=== PATIENT | female | born 1950 | race African-American/Black ===

== ENCOUNTER 2021-01-09 19:52 | Inpatient (IN) | payer OTHER ==
[~2021-01-09] VITALS: Ht 157.5 cm; Wt 104.2 kg
[2021-01-09 20:03] VITALS: BP 139/67
[2021-01-09] MEDS ORDERED: TOPROL XL100 MG PO (20:08)
[2021-01-09] MEDS ORDERED: NORVASC10 MG PO (20:08)
[2021-01-09] MEDS ORDERED: VALSARTAN-HCTZ1 EAC3 PO (20:09)
[2021-01-09] MEDS ORDERED: LIPITOR40 MG PO (20:09)
[2021-01-09] MEDS ORDERED: ASA81BEC PO (20:10)
[2021-01-09] MEDS ORDERED: OMEPRAZOLE 20 M20 M1 PO (20:10)
[2021-01-09] MEDS ORDERED: VITAMIN D325 MC3 PO (20:10)
[2021-01-09 21:24] LABS: ABSOLUTE NEUTROPHILS 6.5 thou/uL (1.4-8.2); BASOPHILS 0.4 % (0.0-2.0); EOSINOPHILS 1.6 % (0.0-3.0); HEMOGLOBIN 13.2 gm/dL (12.0-15.0); LYMPHOCYTES 19.6 % (24.0-44.0); MCH 28.5 pg (26.0-34.0); MCHC 34.8 g/dL (28.0-37.0); MCV 81.9 fL (80.0-100.0); MONOCYTES 9.6 % (1.0-8.0); PLATELET COUNT 173 thou/uL (150-400); POLYS 68.8 % (36.0-66.0); RBC 4.64 mil/uL (4.20-5.00); RDW 15.3 % (10.5-14.5); WBC 9.4 thou/uL (4.0-11.0)
[2021-01-09 21:26] LABS: ANION GAP 8 mmol/L (7-16); BUN 13 mg/dL (7-18); CALCIUM 8.9 mg/dL (8.5-10.1); CHLORIDE 103 mmol/L (98-107); CO2 28 mmol/L (21-32); CREATININE 1.2 mg/dL (0.6-1.0); GLUCOSE 122 mg/dL (74-106); POTASSIUM 3.1 mmol/L (3.5-5.1); SODIUM 139 mmol/L (136-145)
[2021-01-09 21:36] LABS: ALBUMIN 3.1 g/dL (3.4-5.0); SGOT 20 U/L (15-37); SGPT 37 U/L (14-59); TOTAL BILIRUBIN 0.8 mg/dL (0.2-1.0); TOTAL PROTEIN 6.8 g/dL (6.4-8.2); TROPONIN-I <0.06 ng/mL (<0.06)
[2021-01-10] MEDS ORDERED: NORVASC10 MG PO ×2 (00:10)
[2021-01-10 05:12] LABS: ABSOLUTE NEUTROPHILS 4.5 thou/uL (1.4-8.2); BASOPHILS 0.6 % (0.0-2.0); EOSINOPHILS 2.1 % (0.0-3.0); HEMATOCRIT 36.3 % (37.0-47.0); LYMPHOCYTES 27.2 % (24.0-44.0); MCH 27.6 pg (26.0-34.0); MCV 83.5 fL (80.0-100.0); MONOCYTES 10.7 % (1.0-8.0); PLATELET COUNT 152 thou/uL (150-400); POLYS 59.4 % (36.0-66.0); RBC 4.35 mil/uL (4.20-5.00); RDW 15.4 % (10.5-14.5); WBC 7.6 thou/uL (4.0-11.0)
[2021-01-10 05:38] LABS: ANION GAP 11 mmol/L (7-16); BUN 13 mg/dL (7-18); CALCIUM 8.6 mg/dL (8.5-10.1); CHLORIDE 106 mmol/L (98-107); CO2 25 mmol/L (21-32); CREATININE 1.1 mg/dL (0.6-1.0); GLUCOSE 100 mg/dL (74-106); MAGNESIUM 1.8 mg/dL (1.8-2.4); POTASSIUM 3.5 mmol/L (3.5-5.1); SODIUM 142 mmol/L (136-145)
[2021-01-10 08:30] LABS: TROPONIN-I <0.06 ng/mL (<0.06)
[2021-01-10 08:38] LABS: CHOLESTEROL 143 mg/dL (<200); HDL CHOLESTEROL 54 mg/dL (>40); LDL CHOLESTEROL 72 mg/dL (<100); TC:HDL 2.6 Ratio (Not establshd); TRIGLYCERIDE 85 mg/dL (<150); VLDL 17 mg/dL (<40)
--- NOTE | 2021-01-10 09:05 | NUR ---
TOMMY FROM [facility] CALLING ASKING IF DISCHARGE ORDERS CAN BE CLARIFIED WITH PROVIDER. REPORTED D/T BMI HER STRESS TEST WILL BE A "TWO DAY STUDY". REQUESTING CLAIRIFICATION FROM DR. LENNON. PAGED DR. LENNON AND VERIFIED THAT PATIENT NEEDS HER TESTING, REPORTED D/C ORDER IS NOT ACTIVE AND TO PROCEEDE WITH TESTING. NOTIFIED TOMMY OF PROVIDER STATEMENT. TOMMY REPORTED SHE WOULD COME GET PATIENT FOR STRESS TEST "AROUND NOON". TOMMY EX) [id number]
--- NOTE | 2021-01-10 09:39 | EKG ---
[address] [place] [address] ELECTROCARDIOGRAM REPORT Name: DANIELA CHU Room #: 170-8 ADM IN M.R.#: [id number] Admission: 01/09/21 Attend Phys: Brayden Tomlinson MD Discharge: Date of : 50 Report #: [id number] [facility] ED Test Date: 2021-01-09 Test Time: 20:14:24 Pat Name: DANIELA CHU Department: Room: 170 Gender: F Provider Relations Coordinator: NICKI : 1950 Requested By: Nathalie Royal Order Number: [id number] MD: Larry Granados Measurements Intervals [place] Rate: 82 P: 50 AL: 166 QRS: 1 QRSD: 94 T: 2 QT: 364 QTc: 425 Interpretive Statements Sinus rhythm Poor R wave progression No previous ECG available for comparison Electronically Signed On 01-10-2021 9:39:20 CDT by Larry Granados [email or web address] <ELECTRONICALLY SIGNED> By: Larry Granados MD, [facility] 01/10/21 0939 13 13 Larry Granados MD, FACC /EPI
--- NOTE | 2021-01-10 09:40 | 2DMMODE ---
[facility] [place] [address] 2 D/M-MODE ECHOCARDIOGRAM Name: DANIELA CHU Room #: 170-8 ADM IN Darryl.Miranda.#: [id number] Admission: 01/09/21 Attend Phys: Brayden Tomlinson MD Discharge: Date of : 50 Report #: [id number] THIS REPORT FOR: cc: Randy Sanz MD, Steven A. MD Lammoglia, Francisco J. MD ~ APPROVED REPORT Study performed: 01/10/2021 08:48:57 EXAM: Comprehensive 2D, Doppler, and color-flow Echocardiogram Patient Location: ER Status: routine BSA: 2.07 HR: 83 bpm BP: 130/60 mmHg Rhythm: NSR Other Information Study Quality: Good/flat on back Indications Chest Pain Hx: HTN, obesity. 2D Dimensions RVDd: 33.05 mm IVSd: 10.99 (7-11mm) LVOT Diam: 17.15 (18-24mm) LVDd: 37.41 mm PWd: 9.80 (7-11mm) LVDs: 26.31 (25-40mm) Left Atrium: 29.51 (27-40mm) Aortic Root: 29.20 mm Volumes Left Atrial Volume (Systole) Single Plane 4CH: 57.24 mL Single Plane 2CH: 58.93 mL LA ESV Index: 30.00 mL/m2 Aortic Valve AoV Peak Matthias.: 1.96 m/s AO Peak Gr.: 15.42 mmHg LVOT Max P.04 mmHg LVOT Max V: 1.42 m/s [facility] [address] [place] [address] 2 D/M-MODE ECHOCARDIOGRAM Name: DANIELA CHU Room #: 170-8 [facility] IN Cal.#: [id number] Admission: 01/09/21 Attend Phys: Brayden Tomlinson MD Discharge: Date of : 50 Report #: [id number] DINA Vmax: 1.67 cm2 Mitral Valve E/A Ratio: 0.8 MV Decel. Time: 173.35 ms MV E Max Matthias.: 0.75 m/s MV A Matthias.: 0.99 m/s MV PHT: 50.27 ms IVRT: 58.82 ms Pulmonary Valve PV Peak Matthias.: 1.22 m/s PV Peak Gr.: 5.97 mmHg Tricuspid Valve TR Peak Matthias.: 2.44 m/s RAP Estimate: 5.00 mmHg TR Peak Gr.: 24.00 mmHg PA Pressure: 29.00 mmHg Left Ventricle The left ventricle is normal size. There is normal LV segmental wall motion. There is normal left ventricular wall thickness. Left ventricular systolic function is hyperdynamic. LVEF is 65-70%. Mild diastolic dysfunction is present (impaired relaxation pattern). Right Ventricle The right ventricle is normal size. The right ventricular systolic function is normal. Atria The left atrium size is normal. The right atrium size is normal. Aortic Valve The aortic valve is normal in structure. No aortic regurgitation is present. There is no aortic valvular stenosis. Mitral Valve The mitral valve is normal in structure. There is no mitral valve regurgitation noted. No evidence of mitral valve stenosis. Tricuspid Valve The tricuspid valve is normal in structure. Trace tricuspid regurgitation. Estimated PAP is 30mmHg. Pulmonic Valve [facility] [address] [address] [place] [address] 2 D/M-MODE ECHOCARDIOGRAM Name: DANIELA CHU Room #: 170-8 ADM IN M.R.#: [id number] Admission: 01/09/21 Attend Phys: Brayden Tomlinson MD Discharge: Date of : 50 Report #: [id number] Pulmonic valve is not well visualized. Trace pulmonic regurgitation. Great Vessels The aortic root is normal in size. Ascending aorta is not well visualized. IVC is normal in size and collapses >50% with inspiration. Pericardium There is no pericardial effusion. <Conclusion> The left ventricle is normal size. LVEF is 65-70%. The left atrium size is normal. The aortic valve is normal in structure. The mitral valve is normal in structure. The tricuspid valve is normal in structure. Trace tricuspid regurgitation. Estimated PAP is 30mmHg. Pulmonic valve is not well visualized. Trace pulmonic regurgitation. The aortic root is normal in size. There is no pericardial effusion. <ELECTRONICALLY SIGNED> By: Maxi Carlos MD 01/10/21939 9 9 Maxi Carlos MD /INF
--- NOTE | 2021-01-10 11:47 | NUR ---
SPOKE TO TOMMY AND VERIFIED TO PLEASE HOLD METOPROLOL FOR STRESS TEST COMING SHORTLY.
[2021-01-10 14:49] VITALS: BP 133/65
[2021-01-10 15:05] VITALS: BP 123/63
--- NOTE | 2021-01-10 15:05 | NUR ---
PT ORIENTED TO ROOM AND UNIT. BED LOW AND LOCKED, SIDE RAILS UPX3, CALL LIGHT IN REACH, TELE APPLIED, FALL RISK IN PLACE. WILL CONTINUE TO ASSESS.
[2021-01-10 15:15] VITALS: BP 130/51
[2021-01-11 05:08] VITALS: BP 143/60
[2021-01-11 07:11] VITALS: BP 132/57
--- NOTE | 2021-01-11 07:49 | NUR ---
PATIENTS CARES WERE ASSUMED AT SHIFT CHANGE. PATIENT WAS ASSESSED AND MEDS WERE PASSED. PATIENT IS INDEPENDENT AND UP WITH ONE. NPO SINCE MIDNIGHT DUE TO A STRESS TEST #2 TODAY. YESTERDAYS STRESS TEST WAS NEG.ROUNDS WERE DONE, BED IS IN A LOW POSITION. THE BED ALARM IS ON
[2021-01-11 11:11] VITALS: BP 129/71
--- NOTE | 2021-01-11 12:11 | NUR ---
PT IS AXOX4, PLEASANT; PT TO HAVE SECOND STRESS TEST COMPLETED THIS AM. CARDIOLOGY CONSULTED, DR LENNON CONSULTED; PENDING RESULTS, PT TO DC THIS AFTERNOON. PT IS UP X1 STDBY TO TOILET; FALL PRECAUTIONS IN PLACE. NO CONCERNS AT THIS TIME.
--- NOTE | 2021-01-11 14:23 | NUR ---
Nutrition: Pt admit with chest pain, undergoing 2 part stress test. PMH: HTN Received education consult. BMI 42, extreme class 3 obesity. Pt denied need for education on heart healthy diet-was familiar and has been trying to follow at home. Gradual weight loss also recommended-pt understands. Willing to accept education materials but denied need for RD to review.
[2021-01-11 20:48] VITALS: BP 116/57
[2021-01-12] VITALS (10 sets, daily range): BP systolic 123–138; BP diastolic 52–73
--- NOTE | 2021-01-12 06:48 | NUR ---
PATIENTS CARES WERE ASSUMED AT SHIFT CHANGE. PATIENT WAS ASSESED AND MEDS WERE PASSED. CONSENT WAS SIGNED. QUESTIONS ANSWERED AND ALSO INCURAGED PATIENT TO TALK TO THE DOCTOR. PATIENT WAS NPO AFTER MIDNIGHT. PATIENT DID SHOWER AT 0500. IV IN THE LEFT HAND BLEWS.WILL ASKE DAY NURSE FOR IV TEAM TO RESTART WITH ULTRASOUND. ROUNDS WERE DONE. THE BED IS IN A LOW AND LOCKED POSITION
--- NOTE | 2021-01-12 14:01 | NUR ---
PT IS AXOX4, PLEASANT. VSS, AFEBRILE, SR ON MONITOR. PT HAD CARDIAC CATH IN AM; PT ON BEDREST FOR 2 HOURS POST PROCEDURE. R GROIN SITE, NO MYNX, SITE IS C/D/I, NO BLEEDING OR HEMATOMA. PT DI DISCHARGE HOME WITH FAMILY. DISCHARGE EDUCATION COMPLETED ON MEDS AND FOLLOW UP APPT. PT COMMUNICATED UNDERSTANDING OF DISCHARGE. NO CONCERNS AT THIS TIME.
--- NOTE | 2021-01-23 01:01 | CATHLAB ---
[facility] [place] [address] INVASIVE PROCEDURE REPORT Name: DANIELA CHU Room #: 210-P [facility] IN M.R.#: [id number] Admission: 01/09/21 Attend Phys: Brayden Tomlinson MD Discharge: 01/12/21 Date of : 50 Report #: [id number] THIS REPORT FOR: cc: Randy Sanz MD, Steven A. MD Lammoglia, Francisco J. MD ~ APPROVED REPORT Study performed: 01/12/2021 08:18:54 Patient Details Patient Status: In-Patient Room #: The patient is a 70 year-old female Event Personnel Maxi Carlos [facility] Care Transitions Coordinator, Nara Gu RTR Monitor, Briseida Peoples RN RN, Logan Salinas RTR Scrub Procedures Performed Art Access - R femoral artery* Left Heart Cath w/or w/o Coronaries [id number] [facility] Arch Aortography 37735 Initial Mod Sed Same Phys/QHP Gr5y 108634 20701 Mod Sed Same Phys/QHP Ea 999685 Hemostasis with Manual pressure, supervision of conscious sedation. Procedure Narrative The Right Groin^ was infiltrated with 1% Lidocaine subcutaneous anesthesia. A PINNACLE 4FR Sheath #[id number] sheath was inserted into the RFA^. Coronary angiography was performed using coronary diagnostic catheters. The right coronary system was accessed and visualized with a 3DRC catheter. The left coronary system was accessed and visualized with a JL4 catheter. The left ventricle was accessed and visualized with a ANGLED PIGTAIL catheter. Hemostasis was obtained with manual pressure following sheath removal without any complications. The patient tolerated the procedure well and there were no complications associated with the procedure. There was no hematoma. Intraoperative Conscious Sedation Sedation start time: 8:56 Case end Time: 9:35 Versed 2 mg Fluoro Time: 7.30 minutes Dose: DAP 84094.30 cGycm2 1926 mGy [address] [place] [address] [place] [address] INVASIVE PROCEDURE REPORT Name: VLADDANIELA Room #: 210-P [facility] IN .R.#: [id number] Admission: 01/09/21 Attend Phys: Brayden Tomlinson MD Discharge: 01/12/21 Date of : 50 Report #: [id number] Contrast Type and Amount: Omnipaque 115 ml Diagnostic Cath Left Main Large caliber vessel of normal origin bifurcates into left anterior descending and left circumflex arteries. No significant lesions present LAD Moderate caliber type III vessel courses in the anterior interventricular sulcus giving rise to a small first diagonal then proceeds tapering as it goes to the apex. The secondiagonal arises in distal third of lad then a 180 degree bend is present. It finallyterminates as a small bifurcating vessel Diagonal 1 small caliber vessel without lesions Diagonal 2 small caliber vessel without significant lesions Circumflex moderate caliber nondominant vessel with an early rising first marginal then terminates as a small caliber posterior wall branch OM1 moderate caliber with a proximal trifurcation. all branches are free of significant high grade lesions Right Coronary Moderate caliber dominant vessel with a superior shepards crook origin proceeds without significant obstructive lesions R PDA small caliber vessel without significant lesions Left Ventriculography Left Ventriculography was not performed. Hemodynamics The aortic pressure is 118/56 mmHg with a mean of 75 mmHg. The left ventricular pressure is 129/0 mmHg with a mean of mmHg. The left ventricular end diastolic pressure is 24 mmHg. Conclusion 1. Normal coronary arteries 2. Normal hemodynamics Recommendations Cardiac Risk Reduction Program <ELECTRONICALLY SIGNED> By: Maxi Carlos MD 01/23/21100 0 0 Maxi Carlos MD /INF
== END 2021-01-12 14:42 | disposition home or self-care (01) | DRG 287 ==
LOC: ER 19:52 → 2N 22:10 → EROBS 22:10 → 2N 01-10 15:06
PROVIDERS: Nurse Practitioner; Nurse Practitioner Family; ADMIT Internal Medicine; ATTEND Internal Medicine
PROC: B2111ZZ Fluoroscopy of Multiple Coronary Arteries using Low Osmolar Contrast (ICD-10-PCS; principal; 2021-01-12)
PROC: 4A023N8 Measurement of Cardiac Sampling and Pressure, Bilateral, Percutaneous Approach (ICD-10-PCS; principal; 2021-01-12)
PROC: B4101ZZ Fluoroscopy of Abdominal Aorta using Low Osmolar Contrast (ICD-10-PCS; principal; 2021-01-12)
DX: I25.110 Atherosclerotic heart disease of native coronary artery with unstable angina pectoris (principal); Z68.41 Body mass index [BMI] 40.0-44.9, adult; E78.5 Hyperlipidemia, unspecified; I10 Essential (primary) hypertension; M19.90 Unspecified osteoarthritis, unspecified site; E87.6 Hypokalemia; G89.4 Chronic pain syndrome; E66.01 Morbid (severe) obesity due to excess calories; K21.9 Gastro-esophageal reflux disease without esophagitis; M54.9 Dorsalgia, unspecified; I25.83 Coronary atherosclerosis due to lipid rich plaque; Z79.82 Long term (current) use of aspirin; Z79.899 Other long term (current) drug therapy
CPT/HCPCS: 10081

== ENCOUNTER → 2021-02-06 | Outpatient (CLI) | payer OTHER ==
[~2021-02-06] VITALS: Ht 157.5 cm; Wt 101.6 kg
[~2021-02-06] MED LIST: ASA81BEC PO; LIPITOR40 MG PO; NORVASC10 MG PO; OMEPRAZOLE 20 M20 M1 PO; TOPROL XL100 MG PO; TORSEMIDE10 MG PO; VALSARTAN-HCTZ1 EAC3 PO; VITAMIN D325 MC3 PO
[2021-02-06 13:28] VITALS: BP 164/71
--- NOTE | 2021-02-06 13:42 | NUR ---
Pain Clinic Assessment: 1. History of Osteoarthritis: BILATERAL KNEES SPINE HIPS History of Rheumatoid Arthritis: UNKNOWN 2. Height: 5 ft. 2 in. 157.5 cm. Weight: 224.0 lb. oz. 101.606 kg. Patient's BMI: 41.0 3. Vital Signs: BP: 164/71 Pulse: 85 Resp: 18 Temp: 02 Sat: 97 ECG Mon: 4. Pain Intensity: 5-9, CURRENT 7 5. Fall Risk: Dizziness: N Needs help standing or walking: N Fallen in the last 3 months: N Fall risk comments: 6. Patient on Blood Thinner: None 7. History of Hypertension: Y 8. Opioid Therapy greater than 6 weeks: N Opiate Contract Signed: 9. Risk Assessment Tool Provided: 0-LOW RISK 10. Functional Assessment Tool: 11. Recreational Drug Use: Never Drug Type: Tobacco Use: Never Smoker Tobacco Type: Amount or Packs/day: How Many Years: Alcohol Use: No Frequency: Quant:
== END ==
LOC: PAIN 08:06
PROVIDERS: ATTEND Anesthesiology Pain Medicine
DX: M43.16 Spondylolisthesis, lumbar region (principal); M48.061 Spinal stenosis, lumbar region without neurogenic claudication

== ENCOUNTER → 2021-02-13 | Outpatient (CLI) | payer OTHER ==
[~2021-02-13] VITALS: Ht 157.5 cm; Wt 102.2 kg
[2021-02-13 13:51] VITALS: BP 164/74
--- NOTE | 2021-02-13 14:15 | NUR ---
Pain Clinic Assessment: 1. History of Osteoarthritis: BILATERAL KNEES SPINE HIPS History of Rheumatoid Arthritis: UNKNOWN 2. Height: 5 ft. 2 in. 157.5 cm. Weight: 225.4 lb. oz. 102.241 kg. Patient's BMI: 41.2 3. Vital Signs: BP: 164/74 Pulse: 95 Resp: 20 Temp: 02 Sat: 98 ECG Mon: 4. Pain Intensity: 5-8 5. Fall Risk: Dizziness: N Needs help standing or walking: N Fallen in the last 3 months: N Fall risk comments: 6. Patient on Blood Thinner: None 7. History of Hypertension: Y 8. Opioid Therapy greater than 6 weeks: N Opiate Contract Signed: 9. Risk Assessment Tool Provided: 0-LOW RISK 10. Functional Assessment Tool: 11. Recreational Drug Use: Never Drug Type: Tobacco Use: Never Smoker Tobacco Type: Amount or Packs/day: How Many Years: Alcohol Use: No Frequency: Quant:
== END | disposition home or self-care (01) ==
LOC: PAIN 10:41
PROVIDERS: ATTEND Anesthesiology Pain Medicine
DX: M54.16 Radiculopathy, lumbar region (principal); G89.29 Other chronic pain; M19.90 Unspecified osteoarthritis, unspecified site; Z98.890 Other specified postprocedural states; Z79.899 Other long term (current) drug therapy; Z79.82 Long term (current) use of aspirin

== ENCOUNTER → 2021-04-06 | Outpatient (CLI) | payer OTHER ==
[~2021-04-06] VITALS: Ht 157.5 cm; Wt 101.6 kg
[~2021-04-06] MED LIST changes: +TORSEMIDE5 MG PO; +VALSARTAN40 MG PO
[2021-04-06 13:40] VITALS: BP 182/85
--- NOTE | 2021-04-06 13:51 | NUR ---
Pain Clinic Assessment: 1. History of Osteoarthritis: BILATERAL KNEES SPINE HIPS History of Rheumatoid Arthritis: Not Applicable 2. Height: 5 ft. 2 in. 157.5 cm. Weight: 224.0 lb. oz. 101.606 kg. Patient's BMI: 41.0 3. Vital Signs: BP: 182/85 Pulse: 73 Resp: 18 Temp: 02 Sat: 100 ECG Mon: 4. Pain Intensity: 6-7 5. Fall Risk: Dizziness: N Needs help standing or walking: Y Fallen in the last 3 months: N Fall risk comments: 6. Patient on Blood Thinner: None 7. History of Hypertension: Y 8. Opioid Therapy greater than 6 weeks: N Opiate Contract Signed: 9. Risk Assessment Tool Provided: 0-LOW RISK 10. Functional Assessment Tool: 11. Recreational Drug Use: Never Drug Type: Tobacco Use: Never Smoker Tobacco Type: Amount or Packs/day: How Many Years: Alcohol Use: No Frequency: Quant:
== END | disposition home or self-care (01) ==
LOC: PAIN 10:43
PROVIDERS: ATTEND Anesthesiology Pain Medicine
DX: M54.16 Radiculopathy, lumbar region (principal); G89.29 Other chronic pain; I10 Essential (primary) hypertension; M19.90 Unspecified osteoarthritis, unspecified site; Z98.890 Other specified postprocedural states; Z79.899 Other long term (current) drug therapy

== ENCOUNTER → 2021-07-21 | Outpatient (CLI) | payer OTHER | LOC: LAB 08:59 | PROVIDERS: ATTEND Student in an Organized Health Care Education/Training Program | DX: Z01.812 Encounter for preprocedural laboratory examination (principal); Z20.822 Contact with and (suspected) exposure to COVID-19 ==

== ENCOUNTER → 2021-07-24 | Outpatient (CLI) | payer OTHER ==
[~2021-07-24] VITALS: Ht 157.5 cm; Wt 101.6 kg
--- NOTE | 2021-07-27 10:08 | PATH ---
[facility] [address] [place] [address] PATHOLOGY RPT PROCEDURE Name: PHYLLIS CHU Room #: REG [facility] Lechuga#: [id number] Admission: 07/24/21 Date of : 50 Discharge: Report #: [id number] Path Case #: [id number] [facility] Accession Number: [id number] . 01 Material submitted: . PART A: colon - ASCENDING COLON POLYP. Modifiers: ascending PART B: colon - DESCENDING COLON POLYP. Modifiers: descending . 01 Clinical history: . COLONOSCOPY HX OF POLYPS . 02 Diagnosis: A. Ascending colon polyp, polypectomy: - Sessile serrated polyp. - Negative for high-grade dysplasia or malignancy. . B. Descending colon polyp, endoscopic polypectomy: - Scant fragments of colonic mucosa with superficial hyperplastic changes. . - Negative for high-grade dysplasia or malignancy. (ANK:rich; 07/25/2021) . QTP 07/25/2021 1208 Local . 02 Electronically signed: . Lenka Fuentes MD, Pathologist NPI- [id number] . 01 Gross description: . A. The specimen is received in formalin, labeled "Phyllis Chu, ascending colon polyp". Received is a segment of pale aguero tissue measuring 0.6 cm in maximum dimensions. The specimen is submitted entirely in cassette A1. . B. The specimen is received in formalin, labeled "Phyllis Chu, descending colon". Received are 2 segments of pale aguero tissue ranging in size from 0.2 cm to 0.4 cm in maximum dimensions. The specimen is submitted entirely in cassette B1.([facility]; 07/24/2021) [facility] 07/24/2021 1620 Local . 02 Pathologist provided ICD-10: K63.5, Z86.010 . 02 CPT . 184565, 569529 Specimen Comment: A courtesy copy of this report has been sent to [phone] [address] PATHOLOGY RPT PROCEDURE Name: PHYLLIS CHU [place] Room #: REG [facility]#: [id number] Admission: 07/24/21 Date of : 50 Discharge: Report #: [id number] Path Case #: [id number] Specimen Comment: [id number] Specimen Comment: Report sent to Dr.JAIMEDR DAKOTA FORTE Specimen Comment: A duplicate report has been generated due to demographic updates. Performed at: 01 [facility] [address], [place], [place] [id number] MD Mauro Grady MD Phone: [phone] Performed at: [address] [facility] [address] [place] [id number] MD Coco Limon MD Phone: [phone]
== END | disposition home or self-care (01) ==
LOC: GI → EDSTATUS 17:53
PROVIDERS: ATTEND Internal Medicine Gastroenterology
DX: Z12.11 Encounter for screening for malignant neoplasm of colon (principal); Z86.010 Personal history of colon polyps; K63.5 Polyp of colon; K57.30 Diverticulosis of large intestine without perforation or abscess without bleeding; I10 Essential (primary) hypertension; E78.00 Pure hypercholesterolemia, unspecified; K21.9 Gastro-esophageal reflux disease without esophagitis; Z98.890 Other specified postprocedural states; Z79.899 Other long term (current) drug therapy; Z96.652 Presence of left artificial knee joint
CPT/HCPCS: 62110; 62900